=== PATIENT | female | born 1975 | race Caucasian/White ===

== ENCOUNTER 2024-08-22 11:56 | Emergency (ER) | payer MEDICAID, SELFPAY ==
[2024-08-22 12:08] VITALS: BP 170/100; PULSE 73; PULSE 90; RESP 15; RESP 16; TEMP 36.7; O2SAT 98; BMI 42.8
--- NOTE | 2024-08-22 12:22 | XR_ITS ---
Examination: CT abdomen and pelvis without contrast. Coronal 3-D reconstructions. Sagittal 2-D reconstructions. Date and time of exam:August 22, 2024 1302 hours COMPARISON: September 05, 2017 INDICATIONS: Right-sided flank pain with nausea beginning this morning, history kidney stones CTDI: vol (mGy): 14.4 DLP: (mGycm): 803 Technique: Axial images of the abdomen have been obtained, 3 mm slice thickness Intravenous contrast material has not been administered. Low dose protocols were performed. One or more of the following dose reduction techniques were used; automated exposure control, adjustment of the mA and/or KV according to patient size, use of iterative reconstruction technique. Findings: Diffuse fatty infiltration throughout the liver no focal liver or splenic lesions No gallstones No pancreatic or adrenal mass Moderate right hydronephrosis secondary to 4 mm distal right ureteral calculus Aorta normal size No bowel obstruction Normal appendix No diverticulitis No pelvic mass No bladder mass or bladder calculi IMPRESSION: Moderate right hydronephrosis secondary to 4 mm distal right ureteral calculus
--- NOTE | 2024-08-22 12:23 | PD.EDRME ---
Rapid Medical Screening Exam RME Arrival date/time: 08/22/24 11:56 48-year-old female with history of kidney stones presents to the emergency department today via EMS with complaints of flank pain Chief Complaint: Back Pain/Injury Vital signs: Vital Signs Temperature 98.0 F 08/22/24 12:08 Pulse Rate 73 08/22/24 12:08 Respiratory Rate 16 08/22/24 12:08 Blood Pressure 170/100 H 08/22/24 12:08 Pulse Oximetry (%) 98 08/22/24 12:08 Oxygen Delivery Method Room Air 08/22/24 12:08
[2024-08-22 13:03] LABS: Collection Type, Urine Clean Catch
[2024-08-22 13:10] LABS: Bilirubin,Urine Negative (Negative); Blood,Urine 3+ (Negative); Clarity,Urine Clear (Clear/Hazy); Color,Urine Colorless (Lt Yel-Yel); Culture Indicated,Urine Not Indicated; Glucose, Urine Negative (Negative); Ketones,Urine Negative (Negative); Leukocyte Esterase,Urine Negative (Negative); Nitrite,Urine Negative (Negative); PH,Urine 6.5 (5.0-7.0); Protein,Urine Negative (Neg - Trace); RBC,Urine 2 /hpf (0-3); Specific Gravity,Urine 1.004 (1.001-1.035); Squamous Epithelial Cell,Urine < 1 /hpf (0-5); Urobilinogen,Urine Negative mg/dL (0.0-1.0); WBC,Urine < 1 /hpf (0-5)
[2024-08-22 13:11] LABS: Basophils # (Auto) 0.1 Thou/mm3 (0.0-0.2); Basophils % (Auto) 1 % (0-2.5); Eosinophils # (Auto) 0.5 Thou/mm3 (0.0-0.5); Eosinophils % (Auto) 4 % (0-10); Immature Granulocytes % (Auto) 1 % (0-0); Immature Granulocytes Auto 0.09 Thou/mm3 (0.00-0.00); Lymphocytes # (Auto) 1.6 Thou/mm3 (1.0-4.8); Lymphocytes % (Auto) 13 % (10-50); Mean Corpuscular HGB Conc 34.8 g/dl (31.0-37.0); Mean Corpuscular Hemoglobin 29.3 pg (25.0-35.0); Mean Corpuscular Volume 84 fL (80-100); Monocytes # (Auto) 0.6 Thou/mm3 (0.0-0.8); Monocytes % (Auto) 4 % (0-12); Neutrophils # (Auto) 9.6 Thou/mm3 (1.8-7.7); Neutrophils % (Auto) 77 % (37-80); Nucleated Red Blood Cell % 0 /100 WBC (0); RDW Standard Deviation 37.8 fL (36.4-46.3); Red Blood Count 5.47 Miln/mm3 (4.00-5.20); White Blood Count 12.4 Thou/mm3 (3.6-11.0)
[2024-08-22 13:14] LABS: Platelet Count 58 Thou/mm3 (140-440)
[2024-08-22 13:30] LABS: Alanine Aminotransferase 51 U/L (10-49); Albumin, Serum 4.3 gm/dL (3.5-5.0); Albumin/Globulin Ratio 1.5 (1.2-2.2); Alkaline Phosphatase 160 U/L (46-116); Anion Gap 7 (7-16); Aspartate Amino Transferase 37 U/L (0-34); BUN/Creatinine Ratio 19 Ratio (12-20); Bilirubin,Total 0.4 mg/dL (0.3-1.2); Blood Urea Nitrogen 15 mg/dL (9-23); Calcium 9.2 mg/dL (8.3-10.6); Calcium (Corrected) 9.2 mg/dL (8.5-10.1); Chloride 106 mMol/L (98-107); Creatinine (Component) 0.8 mg/dL (0.6-1.3); Estimated Creatinine Clearance 76.8 mL/min (>60); Globulin 2.9 gm/dL (2.3-3.5); Glucose 119 mg/dL (74-106); Lipase 44 U/L (12-53); Osmolality,Calculated 275 (275-295); Potassium 4.2 mMol/L (3.4-5.1); Sodium 137 mMol/L (136-145); Total Protein 7.2 gm/dL (5.7-8.2); eGFR > 60 See Note
[2024-08-22 13:32] LABS: Slide Review Platelets confirmed
--- NOTE | 2024-08-22 13:55 | EDNOTE_ITS ---
ED Back Injury Pain RME/HPI General Chief Complaint: Back Pain/Injury Stated Complaint: BACK PAIN Time Seen by Provider: 08/22/24 13:55 Arrival date/time: 08/22/24 11:56 48-year-old female with history of kidney stones presents to the emergency department via EMS with complaints of right flank pain. Patient was no vomiting or fever no chest pain or shortness of breath Limitations: no limitations RME / HPI RME / HPI Narrative: 08/22/24 11:56 48-year-old female with history of kidney stones presents to the emergency department today via EMS with complaints of flank pain Related Data Previous Rx's ?Medication ?Instructions ?Recorded albuterol sulfate 90 mcg/actuation 2 puff inhalation Q ID PRN 04/12/23 aerosol inhaler (Ventolin HFA) shortness of breath or wheezing #8.5 grams codeine 10 mg-guaifenesin 100 mg/5 10 ml PO Q4H PRN co ugh #118 mL 04/12/23 mL oral liquid hydrocodone 5 mg-acetaminophen 325 1 tab PO BID PRN pa in #10 tabs 08/22/24 mg tablet tamsulosin 0.4 mg capsule (Flomax) 0.4 mg PO QDAY 14 d ays #14 caps 08/22/24 Allergies Allergy/AdvReac Type Severity Reaction Status Date / Time ibuprofen AdvReac Severe THINS BLOOD Verified 04/12/23 17:06 aspirin AdvReac Intermediate PLATELETT Verified 04/12/23 17:06 PROBLEM Review of Systems Review of Systems Systems Reviewed: All systems reviewed, normal except as documented Constitutional Constitutional: Reports system reviewed and no additional complaints, except as documented, Denies fever(s) and Denies headache(s) Eyes Eyes: Reports system reviewed and no additional complaints, except as documented and Denies blurry vision ENT Ears, Nose, Mouth, and Throat: Reports system reviewed and no additional complaints, except as documented, Denies headache(s), Denies nasal congestion and Denies nasal discharge Cardiovascular Cardiovascular: Reports system reviewed and no additional complaints, except as documented, Denies chest pain and Denies dyspnea Respiratory Respiratory: Reports system reviewed and no additional complaints, except as documented, Denies chest congestion, Denies cough and Denies dyspnea Gastrointestinal Gastrointestinal: Reports system reviewed and no additional complaints, except as documented and Denies abdominal pain Genitourinary Genitourinary: Reports system reviewed and no additional complaints, except as documented and Reports flank pain Integumentary/Breasts Skin/Breast: Reports system reviewed and no additional complaints, except as documented and Denies rash Neurologic Neurologic: Reports system reviewed and no additional complaints, except as d ocumented, Reports as per HPI and Denies headache(s) Past Medical History Past Medical History NEUROLOGIC: Negative Neurological Disorders CARDIAC: Negative Cardiac Disorders or Congestive Heart Failure RESPIRATORY: Negative Chronic Obstructive Pulmonary Disease (COPD) GASTROINTESTINAL: Negative Gastrointestinal Disorders GENITOURINARY: Positive Genitourinary Disorders and Kidney Stones; Negative Renal Disease MUSCULOSKELETAL: Negative Musculoskeletal Disorders ENDOCRINE: Negative Diabetes Mellitus Type 1 or Diabetes Mellitus Type 2 HEMATOLOGIC: Positive Blood Disorders (low platlets, sees a doctor for that) Surgical History SURGICAL: Positive Section (x5) Social History SMOKING STATUS: Current some day smoker ED Exam General Limitations: Present no limitations General appearance: Present alert and in no apparent distress Head Head exam: Present atraumatic Eye Eye exam: Present normal appearance, PERRL and EOMI ENT ENT exam: Present normal exam, normal oropharynx and mucous membranes moist Neck Neck exam: Present normal inspection, full ROM and trachea midline Chest Chest inspection: Present normal inspection and symmetric chest wall rise Respiratory Respiratory exam: Present normal lung sounds bilaterally Cardiovascular Cardiovascular exam: Present regular rate, normal rhythm and normal heart sounds Abdominal Exam Abdominal exam: Present soft and normal bowel sounds; Absent distention, tenderness, guarding, rebound or rigidity Extremities Exam Extremities exam: Present normal inspection and full ROM Back Exam Back exam: Present normal inspection, full ROM and tenderness (Right flank pain) Neurological Exam Neurological exam: Present alert, oriented X3 and CN II-XII intact Psychiatric Psychiatric exam: Present normal affect and normal mood Skin Skin exam: Present warm, dry, intact and normal color Course Quality Measures none Orders Category Date Time Status CT abdomen pelvis wo con Stat Exams 08/22/24 12:22 Completed CBC Stat Lab 08/22/24 12:43 Completed Comprehensive Metabolic Panel Stat Lab 08/22/24 12:43 Completed Lipase Stat Lab 08/22/24 12:43 Completed UA, C/S IF [Urinalysis, C/S if Indicated] Stat Lab 08/22/24 12:41 Completed Vital Signs Vital signs: Vital Signs Temperature 98.0 F 08/22/24 12:08 Pulse Rate 73 08/22/24 12:08 Respiratory Rate 16 08/22/24 12:08 Blood Pressure 170/100 H 08/22/24 12:08 Pulse Oximetry (%) 98 08/22/24 12:08 Oxygen Delivery Method Room Air 08/22/24 12:08 O2 saturation 98% on room air with normal limits Back Pain / Injury MDM Narrative MDM Narrative:: 48-year-old female with history of kidney stones presents to the emergency department via EMS with complaints of right flank pain. Patient was no vomiting or fever no chest pain or shortness of breath Lab work and imaging obtained CT scan consistent with 4 mm kidney stone consistent with patient's pain Patient's liver enzymes are elevated patient has fatty liver consults with the patient on this At time of discharge patient reports no pain Patient discharged home in no distress to follow-up with primary care doctor in the next 24 to 48 hours and for any worsening symptoms to return to the ER immediately Patient data External records reviewed:: [facility] previous records Clinical information provided by:: patient Social determinants that could affect healthcare access:: none Patient has the following chronic illnesses:: Kidney stones How is presenting disease/condition affected by chronic disease/condition?: caused by Evaluation data The following diagnostics were reviewed and interpreted by me:: lab results and radiology exam(s) Lab and/or radiology exams considered but not ordered:: Labs radiology obtained Interpretation Summary: Reviewed by me Medications / Prescriptions Medications or Prescriptions considered but not ordered:: Given Medication administrations:: Given Consultations Consultation(s) initiated? (list below): No Diagnosis Differential diagnosis back pain/injury: lumbar radiculopathy, sciatica, strain of lumbar region and renal colic Most likely diagnosis given after review of the tests above:: Renal colic Admission Indicated Admission indicated?: not indicated Admission Request Was there a request for admission?: No Disposition Plan Disposition Plan: Discharge Discharge Attestation Discharge Attestation: The patient and all family members were given an opportunity to ask questions and understood the discharge instructions. Discharge instructions specifically effects, indications for sooner follow up or return to the emergency department, and the expected course of current diagnosis. Patient condition: Stable Discharge Plan Plan Patient Disposition: HOME (Self Care) Disposition Comment: Stable Prescriptions/Referrals Prescriptions/Med Rec: New hydrocodone-acetaminophen 5-325 mg tablet 1 tab PO BID MDD 10 PRN (Reason: pain) Qty: 10 0RF tamsulosin [Flomax] 0.4 mg capsule 0.4 mg PO QDAY 14 Days Qty: 14 0RF No Action codeine-guaifenesin 10-100 mg/5 mL liquid 10 ml PO Q4H PRN (Reason: cough) Qty: 118 0RF albuterol sulfate [Ventolin HFA] 90 mcg/actuation HFA aerosol inhaler 2 puff inhalation QID PRN (Reason: shortness of breath or wheezing) Qty: 8.5 0RF Referrals: Jey Min PA-C [Primary Care Provider] - In 1 week Problem List Clinical Impression: Renal colic, Elevated transaminase level, Fatty liver Patient/Caregiver Discharge Instructions Education Materials: Tests for Liver Disease Additional Instructions: Please follow up with your primary care doctor in the next 24-48hrs for any worsening symptoms return here immediately Print Language: Mauritian Stand Alone Forms: Chiquis Award Info., Work/School Release, Patient Portal Info Letter PA/MARLY Supervising Physician PA/MARLY Supervising Physician: Dr sykes
== END 2024-08-22 14:19 | disposition home or self-care (01) ==
PROVIDERS: Nurse Practitioner Primary Care; Emergency Provider Emergency Medicine; PCP Physician Assistant
DX: N23 Unspecified renal colic (principal); K76.0 Fatty (change of) liver, not elsewhere classified
CPT/HCPCS: 36415; 74176; 80053; 81001; 83690; 85025; 99284

== ENCOUNTER → 2024-09-28 | Outpatient (BNVA) | payer OTHER, MEDICAID, SELFPAY | END | disposition home or self-care (01) | PROVIDERS: PCP Physician Assistant; Referring Provider Physician Assistant; Visit Provider Urology | DX: N13.2 Hydronephrosis with renal and ureteral calculous obstruction (principal); E66.9 Obesity, unspecified; Z68.39 Body mass index [BMI] 39.0-39.9, adult; I10 Essential (primary) hypertension; E11.9 Type 2 diabetes mellitus without complications; F17.210 Nicotine dependence, cigarettes, uncomplicated | CPT/HCPCS: 81003; 99212; G0463 ==

== ENCOUNTER 2024-11-07 13:16 | Emergency (ER) | payer OTHER, MEDICAID, SELFPAY ==
[2024-11-07 13:17] VITALS: BMI 36.3
[2024-11-07 13:27] VITALS: BP 164/94; PULSE 115; RESP 18; TEMP 37.7; O2SAT 95
--- NOTE | 2024-11-07 13:36 | XR_ITS ---
Examination: CT abdomen and pelvis without contrast. Coronal 3-D reconstructions. Sagittal 2-D reconstructions. Date and time of exam:November 07, 2024 1526 hours INDICATIONS: Right-sided abdominal pain today, history kidney stones COMPARISON: August 22, 2024 CTDI: vol (mGy): 11.5 DLP: (mGycm): 651 Technique: Axial images of the abdomen have been obtained, 3 mm slice thickness Intravenous contrast material has not been administered. Low dose protocols were performed. One or more of the following dose reduction techniques were used; automated exposure control, adjustment of the mA and/or KV according to patient size, use of iterative reconstruction technique. Findings: No focal liver or splenic lesions No gallstones No pancreatic mass Significant right renal parenchymal scar formation Poorly defined calcifications in the right renal pelvis coronal image 101 Poorly defined minute calcifications in the proximal ureter, in the 1 mm range, coronal image 93 No hydronephrosis Aorta normal size No pericecal inflammatory change No bowel obstruction Atrophic uterus No adnexal mass Bladder intact IMPRESSION: Small poorly defined calcifications in the right renal pelvis and proximal right ureter, no hydronephrosis
--- NOTE | 2024-11-07 13:38 | PD.EDABDPN ---
ED Abdominal Pain RME/HPI General Chief Complaint: General Adult/Misc Complain Stated complaint: FEELS REALLY SICK & CAN'T GO TO THE RESTROOM Time seen by provider: 11/07/24 13:31 Arrival date/time: 11/07/24 13:16 This is a case of 48-year-old female who came in the emergency room due to right-sided abdominal pain radiating to the right flank for 2 days associated with nausea vomiting persistence of the symptoms this patient decided to start consult here in the emergency room patient have history of kidney stone due to painful and unable to urinate this patient decided to start consult here in the emergency room Limitations: no limitations Related Data Home Medications ?Medication ?Instructions ?Recorded ?Confirmed losartan 25 mg tablet 25 mg PO QDAY 09/28/24 09/28/24 semaglutide 0.25 mg or 0.5 mg (2 0.25 mg subcut QWEEK 09/28/24 09/28/24 mg/3 mL) subcutaneous pen injector ([employer]) tamsulosin 0.4 mg capsule 0.4 mg PO QDAY 09/28/24 09/28/24 tramadol 50 mg tablet 50 mg PO Q8H PRN 09/28/24 09/28/24 Previous Rx's ?Medication ?Instructions ?Recorded cephalexin 500 mg tablet 500 mg PO QID 10 days #40 tabs 11/07/24 hydrocodone 5 mg-acetaminophen 325 1 tab PO Q6H PRN pain #10 tabs 11/07/24 mg tablet ondansetron 4 mg disintegrating 4 mg PO Q8H PRN nausea and 11/07/24 tablet vomiting #10 tabs Allergies Allergy/AdvReac Type Severity Reaction Status Date / Time ibuprofen AdvReac Severe THINS BLOOD Verified 11/07/24 13:19 aspirin AdvReac Intermediate PLATELETT Verified 11/07/24 13:19 PROBLEM Review of Systems Review of Systems Systems Reviewed: All systems reviewed, normal except as documented Constitutional Constitutional: Reports system reviewed and no additional complaints, except as documented, Denies chills and Denies fever(s) ENT Ears, Nose, Mouth, and Throat: Denies dysphagia and Denies odynophagia Cardiovascular Cardiovascular: Reports system reviewed and no additional complaints, except as documented, Reports as per HPI, Denies chest pain and Denies dyspnea Respiratory Respiratory: Reports system reviewed and no additional complaints, except as documented, Reports as per HPI, Denies cough and Denies dyspnea Gastrointestinal Gastrointestinal: Reports system reviewed and no additional complaints, except as documented, Reports as per HPI, Reports abdominal pain, Denies belching, Denies bloating, Denies change in bowel habits, Denies change in stool character, Denies coffee ground emesis, Denies constipation, Denies cramping, Denies diarrhea, Denies dyspepsia, Denies dysphagia, Denies early satiety, Denies excessive flatus, Denies fecal incontinence, Denies heartburn, Denies hematemesis, Denies hematochezia, Denies loose stools, Denies melena, Reports nausea, Denies odynophagia, Denies tenesmus and Denies vomiting Neurologic Neurologic: Reports system reviewed and no additional complaints, except as documented and Reports as per HPI Past Medical History Past Medical History NEUROLOGIC: Negative Neurological Disorders CARDIAC: Negative Cardiac Disorders or Congestive Heart Failure RESPIRATORY: Negative Chronic Obstructive Pulmonary Disease (COPD) GASTROINTESTINAL: Negative Gastrointestinal Disorders GENITOURINARY: Positive Genitourinary Disorders and Kidney Stones; Negative Renal Disease MUSCULOSKELETAL: Negative Musculoskeletal Disorders ENDOCRINE: Negative Diabetes Mellitus Type 1 or Diabetes Mellitus Type 2 HEMATOLOGIC: Positive Blood Disorders (low platlets, sees a doctor for that) Surgical History SURGICAL: Positive Section (x5) Social History SMOKING STATUS: Current every day smoker ED Exam General Limitations: Present no limitations General appearance: Present alert, in no apparent distress and other (Patient is awake alert oriented not in distress nontoxic looking well-hydrated well-nourished) Head Head exam: Present atraumatic, normocephalic and normal inspection Eye Eye exam: Present normal appearance, PERRL and EOMI ENT ENT exam: Present normal exam, normal oropharynx and mucous membranes moist Neck Neck exam: Present normal inspection, full ROM and trachea midline Chest Chest inspection: Present normal inspection and symmetric chest wall rise Respiratory Respiratory exam: Present normal lung sounds bilaterally; Absent respiratory distress, wheezes, stridor, accessory muscle use or prolonged expiratory phase Cardiovascular Cardiovascular exam: Present regular rate, normal rhythm and normal heart sounds; Absent bradycardia, tachycardia, irregular rhythm, systolic murmur or diastolic murmur Abdominal Exam Abdominal exam: Present soft, tenderness (Mild tenderness on the right upper quadrant and right flank no CVA tenderness) and normal bowel sounds; Absent distention, guarding, rebound, rigidity, diminished bowel sounds, hyperactive bowel sounds, hypoactive bowel sounds, organomegaly, psoas sign, obturator sign, Gaitan's sign, Rovsing's sign or tenderness at McBurney's Point Extremities Exam Extremities exam: Present normal inspection and full ROM Back Exam Back exam: Present normal inspection and full ROM Neurological Exam Neurological exam: Present alert, oriented X3, CN II-XII intact, normal gait and reflexes normal; Absent motor sensory deficit Psychiatric Psychiatric exam: Present normal affect and normal mood Skin Skin exam: Present warm, dry, intact and normal color Course Quality Measures none Orders Category Date Time Status CT abdomen pelvis wo con Stat Exams 11/07/24 13:36 Completed CBC Stat Lab 11/07/24 13:49 Completed Comprehensive Metabolic Panel Stat Lab 11/07/24 13:49 Completed HCG Qualitative,Urine Stat Lab 11/07/24 13:45 Completed Lipase Stat Lab 11/07/24 13:49 Completed Urinalysis Stat Lab 11/07/24 13:45 Completed Morphine Inj Med 11/07/24 16:01 Active 4 mg IVP Q1H PRN Ondansetron Inj [Zofran Inj] Med 11/07/24 15:59 Discontinued 4 mg IVP X1 ONE Sodium Chloride 0.9% 1000 ml [Ns] 1,000 ml Med 11/07/24 15:59 Active IV 999 mls/hr Vital Signs Vital signs: Vital Signs Temperature 99.9 F 11/07/24 13:27 Pulse Rate 115 H 11/07/24 13:27 Respiratory Rate 18 11/07/24 13:27 Blood Pressure 164/94 H 11/07/24 13:27 Pulse Oximetry (%) 95 11/07/24 13:27 Oxygen Delivery Method Room Air 11/07/24 13:27 Patient is afebrile not tachycardic not hypoxic oxygen saturation is 95% BP was rechecked by myself and noted to be 145/80 heart rate was also rechecked and noted to be 95 stable vital signs Abdominal Pain MDM MDM Narrative MDM Narrative:: This is a case of 48-year-old female who came in the emergency room due to right-sided abdominal pain radiating to the right flank for 2 days associated with nausea vomiting persistence of the symptoms this patient decided to start consult here in the emergency room patient have history of kidney stone due to painful and unable to urinate this patient decided to start consult here in the emergency room physical examination patient is awake alert oriented not in distress nontoxic looking well-hydrated well-nourished abdominal exam benign nonsurgical mild tenderness on the right upper and right flank no guarding no rebound no rigidity negative psoas negative straight or negative Rovsing's negative Alexander's negative Gaitan sign negative CVA tenderness the rest of the physical examination and neurological exam is normal and unremarkable blood test showed no leukocytosis no anemia kidney liver function is normal no electrolyte imbalance lipase is patient noted to have WBC and urine suggestive of urinary tract infection CT scan is also normal I suspect that the patient passed a stone because there is a calcification on the ureter patient was given a bolus of normal saline morphine for pain and Zofran which patient condition markedly improved patient will follow-up with PCP in 2 days for evaluation abdominal exam is benign nonsurgical no guarding no rebound no tenderness at the time of reassessment patient is afebrile no signs and symptoms of sepsis dehydration or acute abdomen for any worsening symptoms or any emergent concerns she will return to the emergency room immediately or call 911 Patient was discharged with comfortable condition walking with stable gait. Patient verbalized no further complains explained diagnosis and answered patient question. Patient is comfortable with the proposed management plan including the need to follow up with his/her primary care physician and any specialist if applicable Discussed patient for any urgent condition or worsening sx, He/She needed to go to emergency room immediately or call 911. Patient acknowledge the responsibility to follow up as instructed and to monitor her/his symptoms. For any persistence of the symptoms for more than 3-5 days return precaution advised. Discussed the result of the test and was given printed discharge instruction Patient data External records reviewed:: [facility] previous records Clinical information provided by:: patient Social determinants that could affect healthcare access:: none Patient has the following chronic illnesses:: None How is presenting disease/condition affected by chronic disease/condition?: no chronic disease Evaluation data The following diagnostics were reviewed and interpreted by me:: lab results and radiology exam(s) Lab and/or radiology exams considered but not ordered:: Reviewed Interpretation Summary: Reviewed Medications / Prescriptions Medications or Prescriptions considered but not ordered:: Given Medication administrations:: Medication Administration History Sodium Chloride (Ns) 1,000 mls @ 999 mls/hr IV .Q1H1M ONE Stop: 11/07/24 16:59 Morphine Sulfate (Morphine Sulf Inj 10 Mg/Ml Vial) 4 mg IVP Q1H PRN PRN Reason: ABDOMINAL CRAMPING Discontinued Medications Ondansetron HCl (Ondansetron Inj 2 Mg/Ml Inj 2 Ml) 4 mg IVP X1 ONE; Protocol Stop: 11/07/24 16:00 Given Consultations Consultation(s) initiated? (list below): No Diagnosis Differential diagnosis abdominal pain: abdominal pain, acute appendicitis, calculus of kidney, diverticulitis and gastroenteritis Most likely diagnosis given after review of the tests above:: Urinary tract infection Admission Indicated Admission indicated?: not indicated Explain why admission is indicated or not indicated:: Not indicated Admission Request Was there a request for admission?: No Admission Attestation Admission request attestation: Not indicated Disposition Plan Disposition Plan: Discharge Discharge Attestation Discharge Attestation: The patient and all family members were given an opportunity to ask questions and understood the discharge instructions. Discharge instructions specifically effects, indications for sooner follow up or return to the emergency department, and the expected course of current diagnosis. Patient condition: Stable Discharge Plan Plan Patient Disposition: HOME (Self Care) Patient condition on transfer: Stable Prescriptions/Referrals Prescriptions/Med Rec: New hydrocodone-acetaminophen 5-325 mg tablet 1 tab PO Q6H MDD max 4 tabs per day PRN (Reason: pain) Qty: 10 0RF ondansetron 4 mg tablet,disintegrating 4 mg PO Q8H PRN (Reason: nausea and vomiting) Qty: 10 0RF cephalexin 500 mg tablet 500 mg PO QID 10 Days Qty: 40 0RF No Action losartan 25 mg tablet 25 mg PO QDAY Ozempic 0.25 mg or 0.5 mg (2 mg/3 mL) pen injector 0.25 mg subcut QWEEK Rx Instructions: for 4 weeks tamsulosin 0.4 mg capsule 0.4 mg PO QDAY tramadol 50 mg tablet 50 mg PO Q8H PRN Referrals: No Primary/Family,Physician [Primary Care Provider] - In 1 week Problem List Clinical Impression: Abdominal pain, Urinary tract infection Patient/Caregiver Discharge Instructions Education Materials: Abdominal Pain, Urinary Tract Infections in Women Additional Instructions: Follow-up with your primary care physician in 2 days for reevaluation worsening symptoms or any emergent concern call 911 or go to the nearest emergency room take your medication as directed finish the course of antibiotic increase water intake keep hydrated Pedialyte Gatorade for hydration Print Language: [place] Stand Alone Forms: Chiquis Award Info., Patient Portal Info Letter PA/WASHER [employer] CRUSHER TENDER Supervising Physician PA/WASHER [employer] CRUSHER TENDER Supervising Physician: DR Howell
[2024-11-07 14:02] LABS: Basophils # (Auto) 0.0 Thou/mm3 (0.0-0.2); Basophils % (Auto) 0 % (0-2.5); Eosinophils # (Auto) 0.3 Thou/mm3 (0.0-0.5); Eosinophils % (Auto) 3 % (0-10); Hematocrit 45.5 % (36.0-46.0); Hemoglobin 15.9 g/dL (12.0-16.0); Immature Granulocytes Auto 0.05 Thou/mm3 (0.00-0.00); Lymphocytes # (Auto) 0.5 Thou/mm3 (1.0-4.8); Lymphocytes % (Auto) 5 % (10-50); Mean Corpuscular HGB Conc 34.9 g/dl (31.0-37.0); Mean Corpuscular Hemoglobin 28.8 pg (25.0-35.0); Mean Corpuscular Volume 82 fL (80-100); Monocytes # (Auto) 0.5 Thou/mm3 (0.0-0.8); Monocytes % (Auto) 5 % (0-12); Neutrophils # (Auto) 8.4 Thou/mm3 (1.8-7.7); Neutrophils % (Auto) 86 % (37-80); Nucleated Red Blood Cell # 0.00 Thou/mm3 (0.00-0.00); Nucleated Red Blood Cell % 0 /100 WBC (0); Platelet Count 49 Thou/mm3 (140-440); RDW Standard Deviation 37.9 fL (36.4-46.3); Red Blood Count 5.52 Miln/mm3 (4.00-5.20); White Blood Count 9.8 Thou/mm3 (3.6-11.0)
[2024-11-07 14:15] LABS: Alanine Aminotransferase 46 U/L (10-49); Albumin, Serum 4.5 gm/dL (3.5-5.0); Albumin/Globulin Ratio 1.5 (1.2-2.2); Alkaline Phosphatase 133 U/L (46-116); Anion Gap 8 (7-16); Aspartate Amino Transferase 34 U/L (0-34); BUN/Creatinine Ratio 7 Ratio (12-20); Bilirubin,Total 0.4 mg/dL (0.3-1.2); Blood Urea Nitrogen 6 mg/dL (9-23); Calcium 9.4 mg/dL (8.3-10.6); Calcium (Corrected) 9.4 mg/dL (8.5-10.1); Carbon Dioxide 26.3 mMol/L (20.0-31.0); Chloride 103 mMol/L (98-107); Creatinine (Component) 0.9 mg/dL (0.6-1.3); Estimated Creatinine Clearance 69.2 mL/min (>60); Globulin 3.0 gm/dL (2.3-3.5); Glucose 106 mg/dL (74-106); Lipase 30 U/L (12-53); Osmolality,Calculated 271 (275-295); Potassium 3.7 mMol/L (3.4-5.1); Sodium 137 mMol/L (136-145); Total Protein 7.5 gm/dL (5.7-8.2); eGFR > 60 See Note
[2024-11-07 14:17] LABS: Collection Type, Urine Clean Catch
[2024-11-07 14:36] LABS: HCG Qualitative,Urine Negative
[2024-11-07 14:43] LABS: Amorphous Crystals,Urine Present (Absent); Bacteria,Urine 1+; Bilirubin,Urine Negative (Negative); Blood,Urine Trace (Negative); Color,Urine Yellow (Lt Yel-Yel); Glucose, Urine Negative (Negative); Hyaline Casts,Urine < 1 /hpf (0-1); Ketones,Urine Negative (Negative); Leukocyte Esterase,Urine Positive (Negative); Nitrite,Urine Negative (Negative); PH,Urine 7.5 (5.0-7.0); Protein,Urine 1+ (Neg - Trace); RBC,Urine 9 /hpf (0-3); Specific Gravity,Urine 1.022 (1.001-1.035); Squamous Epithelial Cell,Urine 12 /hpf (0-5); Urobilinogen,Urine Negative mg/dL (0.0-1.0); WBC,Urine 21 /hpf (0-5)
[2024-11-07 14:59] LABS: Clarity,Urine Hazy (Clear/Hazy)
[2024-11-07 15:01] LABS: Slide Review Platelets confirmed
[2024-11-07] MEDS: ONDANSETRON ODT 4 MG TABRAP PO (16:47)
[2024-11-07] MEDS: MORPHINE SULF INJ 10 MG/ML VIAL 4 MG IM (16:47)
[2024-11-07 17:17] VITALS: BP 147/87; PULSE 97; RESP 20; TEMP 36.7; O2SAT 98
== END 2024-11-07 17:19 | disposition home or self-care (01) ==
PROVIDERS: Nurse Practitioner Family; Emergency Provider Emergency Medicine
DX: N39.0 Urinary tract infection, site not specified (principal); N28.89 Other specified disorders of kidney and ureter
CPT/HCPCS: 36415; 74176; 80053; 81001; 81025; 83690; 85025; 96372; 99284; J2270; Q0162